=== PATIENT | female | born 1970 | race American Indian/Alaskan Native ===

== ENCOUNTER 2019-06-29 08:59 | Outpatient (CLI) | payer OTHER ==
--- NOTE | 2019-06-30 13:39 | Mammography Report ---
DIGITAL SCREENING MAMMOGRAM WITH CAD, 06/29/2019 INDICATION: Routine screening mammography. TECHNIQUE: Digital bilateral 2D mammography was obtained in the craniocaudal and mediolateral obliq ue projections. This examination was interpreted with the benefit of Computer-Aided Detection analysi s. COMPARISON: None available. However she indicated that she had a previous mammogram at [facility]. FINDINGS: Breast Density: The breasts are heterogeneously dense, which may obscure small masses. Bilateral asymmetries require comparison with a prior mammogram or additional imaging. No architectur al distortion or suspicious calcifications. IMPRESSION: Comparison with the previous mammogram is recommended. We will attempt to obtain a prior mammogram for comparison. If we do not obtain a prior mammogram within 30 days, a revised report will be issued recommending a recall for additional imaging. Please be advised that the patient should no t schedule an appointment for return until adequate time (at least 2 weeks) has passed breast to obta in the prior mammogram. Follow up recommendation: Obtain prior study for comparison Category 0: Incomplete. Needs additional imaging evaluation and/or prior mammograms for comparison. A "normal" or negative report should not discourage follow up or biopsy of a clinically significant f inding. A written summary of these findings will be mailed to the patient. The patient will be entered into a mammography reporting system which will generate a reminder letter for the patient's next appointmen t at the appropriate interval. The [employer] recommends yearly mammograms starting at age 40 and continuing as l dixon as a woman is in good health. Breast MRI is recommended for women with an approximate 20-25% or greater lifetime risk of breast cancer, including women with a strong family history of breast or ova amilcar cancer or who have been treated for Hodgkin's disease. Signer Name: Michael Rueda MD Signed: 06/30/2019 1:35 PM Workstation Name: [id number]
== END 2019-06-29 09:00 | disposition home or self-care (01) ==
LOC: SPVWC 08:59
PROVIDERS: ATTEND Family Medicine
DX: Z12.31 Encounter for screening mammogram for malignant neoplasm of breast (principal)
CPT/HCPCS: 77067

== ENCOUNTER 2019-07-19 09:48 | Outpatient (CLI) | payer OTHER ==
--- NOTE | 2019-07-20 10:46 | Mammography Report ---
BILATERAL DIGITAL DIAGNOSTIC MAMMOGRAM WITH CAD -- 07/19/2019 BILATERAL COMPLETE BREAST ULTRASOUND INDICATION: Recall to evaluate bilateral asymmetries. F/U abnormal mammogram TECHNIQUE: Digital bilateral mammographic imaging was performed. Spot compression views were obtaine d. Complete ultrasound of all four (4) quadrants was performed. This examination was interpreted with the benefit of Computer-Aided Detection (CAD) analysis. COMPARISON: 06/29/2019 FINDINGS: Breast Density: The breasts are heterogeneously dense, which may obscure small masses. MAMMOGRAPHIC FINDINGS: Spot compression views of the left breast demonstrates satisfactory effacement of the circumscribed asymmetry on the MLO view. Partial effacement of right asymmetries on spot comp ression views. ULTRASOUND FINDINGS: Complete sonographic evaluation of all 4 quadrants and retroareolar region was p erformed. Ultrasound of the right breast demonstrated a prominent duct at 9:00 9 cm from the nipple measuring 15 x 4 x 10 mm. No intraductal mass identified. A few small benign cysts and a few other p rominent ducts. No solid mass of the right breast. Ultrasound of the left breast demonstrated a few b enign cysts and no solid mass or suspicious shadowing. A cluster of tiny cysts at 3:00 5 cm from the nipple measures 7 x 2 x 4 mm. IMPRESSION: Probably benign findings in each breast. Recommend 6 month follow-up right mammogram and targeted right breast ultrasound to reevaluate the prominent duct at 9:00 9 cm from the nipple. Recom mend routine screening of the left breast. Follow up recommendation: Short term follow up in 6 months. BI-RADS Category 3: Probably Benign. Followup in 6 months. A "normal" or negative report should not discourage follow up or biopsy of a clinically significant f inding. A written summary of these findings will be mailed to the patient. The patient will be entered into a mammography reporting system which will generate a reminder letter for the patient's next appointmen t at the appropriate interval. According to the [employer], yearly mammograms are recommended starting at age 40 and continuing as long as a woman is in good health. Breast MRI is recommended for women with an evelia roximately 20-25% or greater lifetime risk of breast cancer, including women with a strong family his tory of breast or ovarian cancer and women who have been treated for Hodgkin's disease. Signer Name: Michael Rueda MD Signed: 07/20/2019 10:42 AM Workstation Name: [id number]
== END 2019-07-19 09:49 | disposition home or self-care (01) ==
LOC: SPVWC 09:48
PROVIDERS: ATTEND Family Medicine
DX: R92.8 Other abnormal and inconclusive findings on diagnostic imaging of breast (principal)
CPT/HCPCS: 77066

== ENCOUNTER 2020-10-05 08:56 | Outpatient (CLI) | payer OTHER ==
--- NOTE | 2020-10-05 11:06 | Mammography Report ---
DIGITAL SCREENING MAMMOGRAM WITH CAD, 10/05/2020 INDICATION: Routine screening mammography. TECHNIQUE: Digital bilateral 2D mammography was obtained in the craniocaudal and mediolateral obliq ue projections. This examination was interpreted with the benefit of Computer-Aided Detection analysi s. COMPARISON: 06/29/2019. FINDINGS: Breast Density: There are scattered areas of fibroglandular density. There is no evidence of dominant mass, suspicious calcifications or architectural distortion in eithe r breast. IMPRESSION: Follow up recommendation: Routine yearly BI-RADS Category 1: Negative. A "normal" or negative report should not discourage follow up or biopsy of a clinically significant f inding. A written summary of these findings will be mailed to the patient. The patient will be entered into a mammography reporting system which will generate a reminder letter for the patient's next appointmen t at the appropriate interval. The [employer] recommends yearly mammograms starting at age 40 and continuing as l dixon as a woman is in good health. Breast MRI is recommended for women with an approximate 20-25% or greater lifetime risk of breast cancer, including women with a strong family history of breast or ova amilcar cancer or who have been treated for Hodgkin's disease. Signer Name: Delano Cardenas MD Signed: 10/05/2020 11:01 AM Workstation Name: [id number]
== END 2020-10-05 08:57 | disposition home or self-care (01) ==
LOC: SPVWC 08:56
PROVIDERS: ATTEND Family Medicine
DX: Z12.31 Encounter for screening mammogram for malignant neoplasm of breast (principal)
CPT/HCPCS: 77067